=== PATIENT | male | born 1980 ===

== ENCOUNTER 2016-12-04 14:22 | Emergency (ER) | payer OTHER ==
[2016-12-04 14:32] VITALS: BMI 40.1
[2016-12-04 14:35] VITALS: BP 129/88; PULSE 90; TEMP 99.1
[2016-12-04] MEDS ORDERED: Naproxen 550 mg Tab PO STA (15:35)
--- NOTE | 2016-12-04 15:39 | ED PDOC ---
Arrival/HPI - General Chief Complaint: ENT Problem Time Seen by Provider: 12/04/16 15:35 Historian: Patient - History of Present Illness Narrative History of Present Illness (Text): 12/04/16 15:36 Patient complains of several day history of ringing sensation to the right ear. Denies any pain, discharge, decrease in hearing, fever, headache, URI symptoms, dizziness, nausea. Patient is other complaints otherwise. PMD Santiago Past Medical History - Provider Review Nursing Documentation Reviewed: Yes - Infectious Disease Hx of Infectious Diseases: None - Cardiac Hx Cardiac Disorders: Yes Hx Hypertension: Yes - Psychiatric Hx Psychophysiologic Disorder: No Hx Substance Use: No - Anesthesia Hx Anesthesia Reactions: No Hx Malignant Hyperthermia: No Family/Social History - Physician Review Nursing Documentation Reviewed: Yes Family/Social History: No Known Family HX Smoking Status: Never Smoked Hx Alcohol Use: No Hx Substance Use: No Allergies/Home Meds Allergies/Adverse Reactions: Allergies No Known Allergies Allergy (Verified 10/09/16 13:36) Home Medications: Home Meds Medication Instructions Recorded Confirmed Gemfibrozil [Lopid] 600 mg PO DAILY 10/09/16 10/09/16 Losartan Potassium [Cozaar] 50 mg PO DAILY 10/09/16 10/09/16 Review of Systems - Review of Systems Constitutional: Normal. absent: Fatigue, Weight Change, Fevers Eyes: Normal. absent: Vision Changes, Photophobia ENT: Normal, Tinnitus. absent: Hearing Changes, TMJ Pain, Voice Changes Respiratory: Normal. absent: SOB, Cough Skin: Normal. absent: Rash, Skin Lesions Physical Exam - Physical Exam Narrative Physical Exam (Text): 12/04/16 15:37 GENERAL APPEARANCE: Patient is awake, alert, oriented x 3, in no acute distress. SKIN: Warm, dry; (-) cyanosis, (-) rash. (-) Decubitus Ulcer EYES: (-) conjunctival pallor, (-) scleral icterus, (-) conjunctival hemorrhage. ENMT: Mucous membranes moist. Canals: (-) erythema, (-) edema, (-) excessive cerumen. TMs: (-) erythema. Airway patent: (-) stridor. Pharynx: (-) erythema, (-) exudate. NECK: (-) tenderness, (-) stiffness, (-) meningismus, (-) lymphadenopathy. CHEST AND RESPIRATORY: (-) accessory muscle use. Lungs: (-) rales, (-) rhonchi, (-) wheezes, (-) rub; breath sounds equal bilaterally. HEART AND CARDIOVASCULAR: (-) irregularity; (-) murmur, (-) gallop, (-) rub. NEURO AND PSYCH: Mental status as above; (-) focal findings. Vital Signs Temp Pulse Resp BP Pulse Ox 12/04/16 14:23 99.1 F 90 18 129/88 96 Medical Decision Making ED Course and Treatment: 12/04/16 15:38 36 yo M presents with R ear tinnitus. Patient given naprosyn po. Patient advised that he must follow-up with ENT referral provided for further evaluation of his current symptoms. Prescription provided.Patient states he fully agrees with and understands discharge instructions. States that he agrees with the plan and disposition. Verbalized and repeated discharge instructions and plan. I have given the patient opportunity to ask any additional questions. Follow up with ENT referral in 1-2 days without fail. Advised to take medication as prescribed. Return to the emergency room at any time for any new or worsening symptoms. - PA / CAMPGROUND MANAGER / Resident Statement MD/DO has reviewed & agrees with the documentation as recorded. Disposition/Present on Arrival - Present on Arrival Any Indicators Present on Arrival: No History of DVT/PE: No History of Uncontrolled Diabetes: No Urinary Catheter: No History of Decub. Ulcer: No History Surgical Site Infection Following: None - Disposition Have Diagnosis and Disposition been Completed?: Yes Diagnosis: Tinnitus of right ear Disposition: HOME/ ROUTINE Disposition Time: 15:39 Patient Plan: Discharge Condition: GOOD Discharge Instructions (ExitCare): Tinnitus (ED) Print Language: ARABIC Additional Instructions: Thank you for letting us take care of you today. You were treated for tinnitus right ear. The emergency medical care you received today was directed at your acute symptoms. If you were prescribed any medication, please fill it and take as directed. It may take several days for your symptoms to resolve. Return to the Emergency Department if your symptoms worsen, do not improve, or if you have any other problems. Please contact your doctor in 2 days for re-evaluation and follow up / or call one of the physicians/clinics you have been referred to that are listed on the Patient Visit Information form that is included in your discharge packet. Bring any paperwork you were given at discharge with you along with any medications you are taking to your follow up visit. Our treatment cannot replace ongoing medical care by a primary care provider (PCP) outside of the emergency department. Thank you for allowing the [facility] team to be part of your care today. Prescriptions: Naproxen 500 mg PO BID #30 tab Referrals: Thiago Henderson MD [Primary Care Provider] - Follow up with primary Sukhwinder Odonnell DO [Staff Provider] - Follow up with primary Forms: WORK NOTE
[2016-12-04 15:48] VITALS: RESP 16; O2SAT 98
== END 2016-12-04 15:48 | disposition home or self-care (01) ==
LOC: ED 14:22
DX: H93.11 Tinnitus, right ear (principal); I10 Essential (primary) hypertension

== ENCOUNTER 2017-06-19 08:21 | Emergency (ER) | payer OTHER ==
[2017-06-19 08:22] VITALS: BMI 40.1
[2017-06-19 08:40] VITALS: TEMP 98.8
--- NOTE | 2017-06-19 08:51 | ED PDOC ---
Arrival/HPI - General Chief Complaint: Cough, Cold, Congestion Time Seen by Provider: 06/19/17 08:26 Historian: Patient - History of Present Illness Narrative History of Present Illness (Text): 06/19/17 08:40 Akil Chiu is a 36 year old male, whose past medical history includes hypertension, who presents to the emergency department complaining of an itchy sore throat and mild headache since last night. Patient also reports having a cough and nose congestion. He notes taking Tylenol for his fever, which had relief on his symptoms. Patient denies any shortness of breath, chest pain, nausea, vomiting, diarrhea, or other complaints. PMD: Dr. Henderson Time/Duration: Other (last night) Symptom Onset: Sudden Symptom Course: Unchanged Associated Symptoms (Text): fever, headache, nose congestion, cough Past Medical History - Provider Review Nursing Documentation Reviewed: Yes - Infectious Disease Hx of Infectious Diseases: None - Cardiac Hx Cardiac Disorders: Yes Hx Hypertension: Yes - Psychiatric Hx Psychophysiologic Disorder: No Hx Substance Use: No - Anesthesia Hx Anesthesia Reactions: No Hx Malignant Hyperthermia: No Family/Social History - Physician Review Nursing Documentation Reviewed: Yes Family/Social History: Other (Non-contributing) Smoking Status: Never Smoked Hx Alcohol Use: No Hx Substance Use: No Allergies/Home Meds Allergies/Adverse Reactions: Allergies Penicillins Allergy (Verified 06/19/17 08:40) RASH Home Medications: Home Meds Medication Instructions Recorded Confirmed Gemfibrozil [Lopid] 600 mg PO DAILY 10/09/16 06/19/17 Losartan Potassium [Cozaar] 50 mg PO DAILY 10/09/16 06/19/17 Review of Systems - Review of Systems Constitutional: Fevers ENT: Sore Throat, Sinus Congestion Respiratory: Cough. absent: SOB Cardiovascular: absent: Chest Pain Gastrointestinal: absent: Abdominal Pain, Diarrhea, Vomiting Musculoskeletal: absent: Back Pain Neurological: Headache Physical Exam Vital Signs Reviewed: Yes Vital Signs Temp Pulse Resp BP Pulse Ox 06/19/17 10:10 81 18 129/85 95 06/19/17 08:37 98.8 F 88 16 140/90 98 Temperature: Afebrile Blood Pressure: Normal Pulse: Regular Respiratory Rate: Normal Appearance: Positive for: Well-Appearing, Non-Toxic, Comfortable Pain Distress: None Mental Status: Positive for: Alert and Oriented X 3 - Systems Exam Head: Present: Atraumatic, Normocephalic Mouth: Present: Moist Mucous Membranes Pharnyx: Present: Normal. No: ERYTHEMA Neck: Present: Normal Range of Motion Respiratory/Chest: Present: Clear to Auscultation, Good Air Exchange. No: Respiratory Distress, Accessory Muscle Use Cardiovascular: Present: Regular Rate and Rhythm, Normal S1, S2. No: Murmurs Abdomen: Present: Normal Bowel Sounds. No: Tenderness, Distention, Peritoneal Signs Neurological: Present: GCS=15, CN II-XII Intact, Speech Normal Skin: Present: Warm, Dry, Normal Color. No: Rashes Psychiatric: Present: Alert, Oriented x 3, Normal Insight, Normal Concentration Medical Decision Making - Lab Interpretations Lab Results: Lab Results 06/19/17 08:47: Grp A Beta Strep Ag Negative I have reviewed the lab results: Yes - Medication Orders Current Medication Orders: Discontinued Medications Ibuprofen (Motrin Tab) 800 mg PO STAT STA Stop: 06/19/17 08:48 Last Admin: 06/19/17 09:03 Dose: Lidocaine HCl (Lidocaine 2% Viscous) 15 ml PO STAT STA Stop: 06/19/17 08:48 Last Admin: 06/19/17 08:57 Dose: 15 ml - Scribe Statement The provider has reviewed the documentation as recorded by the Charles Fong Provider Scribe Attestation: All medical record entries made by the Scribe were at my direction and personally dictated by me. I have reviewed the chart and agree that the record accurately reflects my personal performance of the history, physical exam, medical decision making, and the department course for this patient. I have also personally directed, reviewed, and agree with the discharge instructions and disposition. Disposition/Present on Arrival - Present on Arrival Any Indicators Present on Arrival: No History of DVT/PE: No History of Uncontrolled Diabetes: No Urinary Catheter: No History of Decub. Ulcer: No History Surgical Site Infection Following: None - Disposition Have Diagnosis and Disposition been Completed?: Yes Diagnosis: URI (upper respiratory infection) Disposition: HOME/ ROUTINE Disposition Time: 10:10 Condition: STABLE Discharge Instructions (ExitCare): Upper Respiratory Infection (ED) Additional Instructions: Please follow up with your doctor. Take both tylenol and ibuprofen as directed for body aches and fever. Return to the ER for any worsening symptoms or for any other concerns. Referrals: Thiago Henderson MD [Primary Care Provider] - Follow up with primary Forms: [facility] (Cape Verdean), WORK NOTE
[2017-06-19 10:11] VITALS: BP 129/85; PULSE 81; RESP 18; O2SAT 95
== END 2017-06-19 10:10 | disposition home or self-care (01) ==
LOC: ED 08:21
DX: J06.9 Acute upper respiratory infection, unspecified (principal); I10 Essential (primary) hypertension

== ENCOUNTER 2017-09-26 06:26 | Emergency (ER) | payer OTHER ==
[2017-09-26 06:26] VITALS: BMI 40.1
[2017-09-26 07:06] VITALS: BP 128/86; PULSE 86; RESP 18; TEMP 98.7; O2SAT 95
--- NOTE | 2017-09-26 08:21 | ED PDOC ---
Arrival/HPI - General Chief Complaint: ENT Problem Time Seen by Provider: 09/26/17 07:54 Historian: Patient - History of Present Illness Time/Duration: Other (3 days) Symptom Onset: Gradual Symptom Course: Worsening Quality: Aching Severity Level: Moderate Associated Symptoms (Text): 09/26/17 08:18 Patient complains of a three-day history of a cough congestion sputum production URI symptoms and sore throat. No fever or chills. No dyspnea. No chest pain. Past Medical History - Infectious Disease Hx of Infectious Diseases: None - Cardiac Hx Cardiac Disorders: Yes Hx Hypertension: Yes - Pulmonary Hx Respiratory Disorders: No - Neurological Hx Neurological Disorder: No - HEENT Hx HEENT Disorder: No - Renal Hx Renal Disorder: No - Endocrine/Metabolic Hx Endocrine Disorders: No - Hematological/Oncological Hx Blood Disorders: No - Integumentary Hx Dermatological Disorder: No - Musculoskeletal/Rheumatological Hx Musculoskeletal Disorders: No - Gastrointestinal Hx Gastrointestinal Disorders: No - Genitourinary/Gynecological Hx Genitourinary Disorders: No - Psychiatric Hx Psychophysiologic Disorder: No Hx Substance Use: No - Anesthesia Hx Anesthesia Reactions: No Hx Malignant Hyperthermia: No Family/Social History - Physician Review Nursing Documentation Reviewed: Yes Family/Social History: Unknown Family HX Smoking Status: Never Smoked Hx Alcohol Use: No Hx Substance Use: No Allergies/Home Meds Allergies/Adverse Reactions: Allergies Penicillins Allergy (Verified 09/26/17 06:55) RASH Home Medications: Home Meds Medication Instructions Recorded Confirmed Losartan Potassium [Cozaar] 50 mg PO DAILY 10/09/16 09/26/17 Review of Systems - Physician Review All systems were reviewed & negative as marked: Yes - Review of Systems Constitutional: Fatigue. absent: Fevers Respiratory: Cough, Sputum. absent: SOB, Wheezing Cardiovascular: absent: Chest Pain, Syncope Gastrointestinal: absent: Abdominal Pain, Nausea, Vomiting Physical Exam Vital Signs Temp Pulse Resp BP Pulse Ox 09/26/17 07:05 98.7 F 86 18 128/86 95 Temperature: Afebrile Blood Pressure: Normal Pulse: Regular Respiratory Rate: Normal Appearance: Positive for: Well-Appearing, Non-Toxic, Uncomfortable Pain Distress: None Mental Status: Positive for: Alert and Oriented X 3 - Systems Exam Head: Present: Atraumatic, Normocephalic Pupils: Present: PERRL Extroacular Muscles: Present: EOMI Conjunctiva: Present: Normal Ears: Present: NORMAL TM, Normal Canal. No: Erythema, TM Bulging Mouth: Present: Moist Mucous Membranes Pharnyx: Present: ERYTHEMA. No: EXUDATE, TONSILS ENLARGED, Peritonsilar Swelling, Uvular Deviation, Muffled/Hoarse Voice, Strider, Soft Palate/Uvular Edema Nose (Internal): Present: Other (congested) Neck: Present: Normal Range of Motion Respiratory/Chest: Present: Clear to Auscultation, Good Air Exchange. No: Respiratory Distress, Accessory Muscle Use Cardiovascular: Present: Regular Rate and Rhythm, Normal S1, S2. No: Murmurs Skin: Present: Warm, Dry, Normal Color. No: Rashes Disposition/Present on Arrival - Present on Arrival Any Indicators Present on Arrival: No History of DVT/PE: No History of Uncontrolled Diabetes: No Urinary Catheter: No History of Decub. Ulcer: No History Surgical Site Infection Following: None - Disposition Have Diagnosis and Disposition been Completed?: Yes Diagnosis: Pharyngitis, Bronchitis, Upper respiratory infection Disposition: HOME/ ROUTINE Disposition Time: 08:21 Patient Plan: Discharge Condition: GOOD Discharge Instructions (ExitCare): Acute Bronchitis (ED)
== END 2017-09-26 08:37 | disposition home or self-care (01) ==
LOC: ED 06:26
DX: J40 Bronchitis, not specified as acute or chronic (principal); J02.9 Acute pharyngitis, unspecified; J06.9 Acute upper respiratory infection, unspecified; I10 Essential (primary) hypertension

== ENCOUNTER 2018-01-01 06:31 | Emergency (ER) | payer OTHER ==
[2018-01-01 06:31] VITALS: BMI 40.1
[2018-01-01 06:48] VITALS: BP 143/83; PULSE 79; RESP 18; TEMP 98.6; O2SAT 98
--- NOTE | 2018-01-01 07:24 | ED PDOC ---
Arrival/HPI - General Chief Complaint: ENT Problem Time Seen by Provider: 01/01/18 07:10 Historian: Patient - History of Present Illness Narrative History of Present Illness (Text): 01/01/18 07:15 37 year old male, whose PMH includes hypertension, who presents to the emergency department complaining of tinnitus on right ear since last night. Patient reports he previously had this problem, and had an MRI of his ear done. Patient states he couldn't make it to work due to lack of sleep because of the pain. No other complaints were made. Time/Duration: 4-6 hours Symptom Onset: Sudden Symptom Course: Unchanged Context: Home Past Medical History - Provider Review Nursing Documentation Reviewed: Yes - Infectious Disease Hx of Infectious Diseases: None - Cardiac Hx Cardiac Disorders: Yes Hx Hypertension: Yes - Pulmonary Hx Respiratory Disorders: No - Neurological Hx Neurological Disorder: No - HEENT Hx HEENT Disorder: No - Renal Hx Renal Disorder: No - Endocrine/Metabolic Hx Endocrine Disorders: No - Hematological/Oncological Hx Blood Disorders: No - Integumentary Hx Dermatological Disorder: No - Musculoskeletal/Rheumatological Hx Musculoskeletal Disorders: No - Gastrointestinal Hx Gastrointestinal Disorders: No - Genitourinary/Gynecological Hx Genitourinary Disorders: No - Psychiatric Hx Psychophysiologic Disorder: No Hx Substance Use: No - Anesthesia Hx Anesthesia Reactions: No Hx Malignant Hyperthermia: No Family/Social History - Physician Review Nursing Documentation Reviewed: Yes Family/Social History: Unknown Family HX Smoking Status: Never Smoked Hx Alcohol Use: No Hx Substance Use: No Allergies/Home Meds Allergies/Adverse Reactions: Allergies Penicillins Allergy (Verified 09/26/17 06:55) RASH Home Medications: Home Meds Medication Instructions Recorded Confirmed Losartan Potassium [Cozaar] 50 mg PO DAILY 10/09/16 01/01/18 Review of Systems - Physician Review All systems were reviewed & negative as marked: Yes - Review of Systems Constitutional: absent: Fevers ENT: Tinnitus (right ear) Respiratory: absent: SOB Cardiovascular: absent: Chest Pain Physical Exam Vital Signs Reviewed: Yes Vital Signs Temp Pulse Resp BP Pulse Ox 01/01/18 06:43 98.6 F 79 18 143/83 98 Temperature: Afebrile Blood Pressure: Normal Pulse: Regular Respiratory Rate: Normal Appearance: Positive for: Well-Appearing, Non-Toxic, Comfortable Pain Distress: None Mental Status: Positive for: Alert and Oriented X 3 - Systems Exam Head: Present: Atraumatic, Normocephalic Pupils: Present: PERRL Extroacular Muscles: Present: EOMI Conjunctiva: Present: Normal Ears: Present: Normal, NORMAL TM, Normal Canal. No: Erythema, TM Bulging Mouth: Present: Moist Mucous Membranes Neurological: Present: GCS=15, CN II-XII Intact, Speech Normal Skin: Present: Warm, Dry, Normal Color. No: Rashes Psychiatric: Present: Alert, Oriented x 3, Normal Insight, Normal Concentration Medical Decision Making ED Course and Treatment: 01/01/18 Impression: 37 year old male, with unremarkable physical exam who presents to the emergency department complaining of tinnitus on right ear. Plan: -- Reassess and disposition Progress Notes: 01/01/18 13:30 h/o of chronic tinnitus, already eval by ent. requesting work note. - Scribe Statement The provider has reviewed the documentation as recorded by the Scribe Erika Fong Provider Scribe Attestation: All medical record entries made by the Scribe were at my direction and personally dictated by me. I have reviewed the chart and agree that the record accurately reflects my personal performance of the history, physical exam, medical decision making, and the department course for this patient. I have also personally directed, reviewed, and agree with the discharge instructions and disposition. Disposition/Present on Arrival - Present on Arrival Any Indicators Present on Arrival: No History of DVT/PE: No History of Uncontrolled Diabetes: No Urinary Catheter: No History of Decub. Ulcer: No History Surgical Site Infection Following: None - Disposition Have Diagnosis and Disposition been Completed?: Yes Diagnosis: Tinnitus, Encounter to obtain excuse from work Disposition: HOME/ ROUTINE Disposition Time: 07:00 Condition: STABLE Discharge Instructions (ExitCare): Tinnitus (Ringing in the Ears) Additional Instructions: follow up with your doctor/specialist. return to er with worsening symptoms or concerns. Referrals: Sukhwinder Odonnell DO [Staff Provider] - Follow up with primary Alexa García [Primary Care Provider] - Follow up with primary Forms: [facility] (Guamanian), WORK NOTE
== END 2018-01-01 07:50 | disposition home or self-care (01) ==
LOC: ED 06:31
DX: Z02.89 Encounter for other administrative examinations (principal); H93.11 Tinnitus, right ear; I10 Essential (primary) hypertension

== ENCOUNTER 2018-06-06 11:14 | Emergency (ER) | payer OTHER ==
[2018-06-06 11:34] VITALS: BMI 39.6
[2018-06-06 11:36] VITALS: RESP 18; TEMP 98.3; O2SAT 96
--- NOTE | 2018-06-06 12:19 | ED PDOC ---
Arrival/HPI - General Chief Complaint: ENT Problem Time Seen by Provider: 06/06/18 12:13 Historian: Patient - History of Present Illness Narrative History of Present Illness (Text): 06/06/18 13:08 37-year-old male with a history of tinnitus presents today with ringing in his ears that started today while at work. Patient states he has a history of similar symptoms in the same ear about 4 months ago. Patient states he followed with an ENT specialist and was given medications for the ringing in the ears. Patient states he's also had CAT scans of his head as well as multiple tests performed on his ear. Patient states ENT specialist told him he had 15% hearing loss in that right ear. 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 Patient states he does not have any of those medications remaining in the symptoms started again today while at work. Patient denies headaches dizziness or weakness denies fevers or chills. Denies neck pain. Patient denies pain within the ears. States he just has a ringing sensation in the ears that has been constant since this morning. Denies any recent trauma or injury. No other complaints Past Medical History - Provider Review Nursing Documentation Reviewed: Yes - Travel History Have you recently traveled outside [place] w/in the past 3 mons?: No - Infectious Disease Hx of Infectious Diseases: None - Cardiac Hx Cardiac Disorders: Yes Hx Hypertension: Yes - Pulmonary Hx Respiratory Disorders: No - Neurological Hx Neurological Disorder: No - HEENT Hx HEENT Disorder: Yes Other/Comment: Tinnitus - Renal Hx Renal Disorder: No - Endocrine/Metabolic Hx Endocrine Disorders: No - Hematological/Oncological Hx Blood Disorders: No - Integumentary Hx Dermatological Disorder: No - Musculoskeletal/Rheumatological Hx Musculoskeletal Disorders: No - Gastrointestinal Hx Gastrointestinal Disorders: No - Genitourinary/Gynecological Hx Genitourinary Disorders: No - Psychiatric Hx Psychophysiologic Disorder: No Hx Substance Use: No - Anesthesia Hx Anesthesia: No Hx Anesthesia Reactions: No Hx Malignant Hyperthermia: No Family/Social History - Physician Review Nursing Documentation Reviewed: Yes Family/Social History: Unknown Family HX Smoking Status: Never Smoked Hx Alcohol Use: No Hx Substance Use: No Allergies/Home Meds Allergies/Adverse Reactions: Allergies Penicillins Allergy (Verified 09/26/17 06:55) RASH Home Medications: Home Meds Medication Instructions Recorded Confirmed Losartan Potassium [Cozaar] 50 mg PO DAILY 10/09/16 06/06/18 Review of Systems - Review of Systems Constitutional: absent: Fatigue, Fevers ENT: Tinnitus. absent: TMJ Pain, Voice Changes, Sore Throat, Rhinorrhea, Epistaxis, Sinus Congestion Respiratory: absent: SOB, Cough Cardiovascular: absent: Chest Pain, Palpitations Gastrointestinal: absent: Abdominal Pain, Nausea, Vomiting Genitourinary Male: absent: Dysuria Musculoskeletal: absent: Arthralgias Skin: absent: Rash, Pruritis Neurological: absent: Headache, Dizziness Psychiatric: absent: Anxiety, Depression Physical Exam Vital Signs Reviewed: Yes Vital Signs Temp Pulse Resp BP Pulse Ox 06/06/18 11:35 98.3 F 76 18 130/90 96 Temperature: Afebrile Blood Pressure: Normal Pulse: Regular Respiratory Rate: Normal Appearance: Positive for: Well-Appearing, Non-Toxic, Comfortable Pain Distress: None Mental Status: Positive for: Alert and Oriented X 3 - Systems Exam Head: Present: Atraumatic Pupils: Present: PERRL Extroacular Muscles: Present: EOMI Ears: Present: Normal, NORMAL TM, Normal Canal, Other (no mastoid tenderness). No: Erythema, TM Perf Mouth: Present: Moist Mucous Membranes Pharnyx: Present: Normal Nose (External): Present: Atraumatic Nose (Internal): Present: Normal Inspection Neck: Present: Normal Range of Motion, Trachea Midline. No: Lymphadenopathy Respiratory/Chest: Present: Clear to Auscultation Cardiovascular: Present: Regular Rate and Rhythm Neurological: Present: GCS=15 Skin: Present: Warm, Dry, Normal Color. No: Rashes Psychiatric: Present: Alert, Oriented x 3 Medical Decision Making ED Course and Treatment: 06/06/18 13:15 37 yr old male with hx of tinnitus, with full Workup by ENT 4 months ago. now with tinnitus that started this morning. no headaches, dizziness, weakness. no blurred vision. Advised follow-up with PMD and ENT specialist within the next 2 days. Advised immediate return if symptoms worsen persist or if new concerning symptoms develop Patient verbalizes understanding of discharge instructions and need for immediate followup. all aspects of this case were discussed the attending of record. impression; tinnitus f/u with pmd and ent specialist return if symptoms worsen, persist or if new symptoms develop. Disposition/Present on Arrival - Present on Arrival Any Indicators Present on Arrival: No History of DVT/PE: No History of Uncontrolled Diabetes: No Urinary Catheter: No History of Decub. Ulcer: No History Surgical Site Infection Following: None - Disposition Have Diagnosis and Disposition been Completed?: Yes Diagnosis: Tinnitus Disposition: HOME/ ROUTINE Disposition Time: 12:17 Patient Plan: Discharge Patient Problems: Current Active Problems Problem Status Onset Tinnitus Acute Condition: GOOD Discharge Instructions (ExitCare): Tinnitus (Ringing in the Ears) Additional Instructions: Follow up with the ENT specialist within the next 2 days Return if symptoms worsen,persist or if new symptoms develop Referrals: Alexa García [Primary Care Provider] - Follow up with primary Jesús Donahue DO [Doctor Osteopathy] - Follow up with primary Forms: [facility] (Ind[place]ian), WORK NOTE
[2018-06-06 12:50] VITALS: BP 128/85; PULSE 74
== END 2018-06-06 13:18 | disposition home or self-care (01) ==
LOC: ED 11:14
DX: H93.11 Tinnitus, right ear (principal)

== ENCOUNTER 2018-11-12 05:57 | Emergency (ER) | payer SELFPAY ==
[2018-11-12 06:02] VITALS: BMI 43.9
--- NOTE | 2018-11-12 06:04 | ED PDOC ---
Arrival/HPI - General Time Seen by Provider: 11/12/18 06:00 Historian: Patient - History of Present Illness Narrative History of Present Illness (Text): 11/12/18 06:03 Akil Chiu is a 38 year old male, whose past medical history includes hypertension, who presents to the Emergency department complaining of a clogged sensation to his left ear for 1 day. Patient denies any fever, chills, sore throat, cough, nausea, vomiting, headache dizziness, neck pain, or any other complaints. Symptom Onset: Gradual Symptom Course: Unchanged Activities at Onset: Light Context: Home Past Medical History - Provider Review Nursing Documentation Reviewed: Yes - Infectious Disease Hx of Infectious Diseases: None - Cardiac Hx Cardiac Disorders: Yes Hx Hypertension: Yes - Pulmonary Hx Respiratory Disorders: No - Neurological Hx Neurological Disorder: No - HEENT Hx HEENT Disorder: Yes Other/Comment: Tinnitus - Renal Hx Renal Disorder: No - Endocrine/Metabolic Hx Endocrine Disorders: No - Hematological/Oncological Hx Blood Disorders: No - Integumentary Hx Dermatological Disorder: No - Musculoskeletal/Rheumatological Hx Musculoskeletal Disorders: No - Gastrointestinal Hx Gastrointestinal Disorders: No - Genitourinary/Gynecological Hx Genitourinary Disorders: No - Psychiatric Hx Psychophysiologic Disorder: No Hx Substance Use: No - Anesthesia Hx Anesthesia: No Hx Anesthesia Reactions: No Hx Malignant Hyperthermia: No Family/Social History - Physician Review Nursing Documentation Reviewed: Yes Family/Social History: Unknown Family HX Smoking Status: Never Smoked Hx Alcohol Use: No Hx Substance Use: No Allergies/Home Meds Allergies/Adverse Reactions: Allergies Penicillins Allergy (Verified 11/12/18 06:06) RASH Home Medications: Home Meds Medication Instructions Recorded Confirmed Losartan Potassium [Cozaar] 50 mg PO DAILY 10/09/16 06/06/18 Review of Systems - Physician Review All systems were reviewed & negative as marked: Yes - Review of Systems Constitutional: Normal. absent: Fevers Eyes: Normal ENT: Other (+left ear clogged sensation) Respiratory: Normal. absent: SOB, Cough Cardiovascular: Normal. absent: Chest Pain Gastrointestinal: Normal. absent: Abdominal Pain, Diarrhea, Vomiting, Anorexia Genitourinary Male: Normal. absent: Dysuria, Frequency, Hematuria, Urinary Output Changes Musculoskeletal: Normal. absent: Back Pain, Neck Pain Skin: Normal. absent: Rash Neurological: Normal. absent: Headache, Dizziness Endocrine: Normal Hemo/Lymphatic: Normal Psychiatric: Normal Physical Exam Vital Signs Reviewed: Yes Temperature: Afebrile Blood Pressure: Normal Pulse: Regular Respiratory Rate: Normal Appearance: Positive for: Well-Appearing, Non-Toxic, Comfortable Pain Distress: None Mental Status: Positive for: Alert and Oriented X 3 - Systems Exam Head: Present: Atraumatic, Normocephalic Pupils: Present: PERRL Extroacular Muscles: Present: EOMI Conjunctiva: Present: Normal Ears: Present: Other (Cerumen impaction in left ear) Mouth: Present: Moist Mucous Membranes Pharnyx: Present: Normal. No: ERYTHEMA, EXUDATE, TONSILS ENLARGED, Peritonsilar Swelling, Uvular Deviation, Muffled/Hoarse Voice, Strider, Soft Palate/Uvular Edema Nose (External): Present: Atraumatic Nose (Internal): Present: Normal Inspection Neck: Present: Normal Range of Motion. No: Meningeal Signs, MIDLINE TENDERNESS, Paraspinal Tenderness Respiratory/Chest: Present: Clear to Auscultation, Good Air Exchange. No: Respiratory Distress, Accessory Muscle Use Cardiovascular: Present: Regular Rate and Rhythm, Normal S1, S2. No: Murmurs Abdomen: No: Tenderness, Distention, Peritoneal Signs Upper Extremity: Present: Normal Inspection. No: Cyanosis, Edema Lower Extremity: Present: Normal Inspection. No: Edema Neurological: Present: GCS=15, CN II-XII Intact, Speech Normal Skin: Present: Warm, Dry, Normal Color. No: Rashes Psychiatric: Present: Alert, Oriented x 3, Normal Insight, Normal Concentration Medical Decision Making ED Course and Treatment: 11/12/18 06:03 Impression: 38 year old male complaining of a clogged sensation in his left ear for 1 day. Plan: -- Reassess and disposition Progress Notes: - Scribe Statement The provider has reviewed the documentation as recorded by the Charles Jeff Provider Scribe Attestation: All medical record entries made by the Scribe were at my direction and personally dictated by me. I have reviewed the chart and agree that the record accurately reflects my personal performance of the history, physical exam, medical decision making, and the department course for this patient. I have also personally directed, reviewed, and agree with the discharge instructions and disposition. Disposition/Present on Arrival - Present on Arrival Any Indicators Present on Arrival: No History of DVT/PE: No History of Uncontrolled Diabetes: No Urinary Catheter: No History Surgical Site Infection Following: None - Disposition Have Diagnosis and Disposition been Completed?: Yes Diagnosis: Excessive cerumen in left ear canal Disposition: HOME/ ROUTINE Disposition Time: 06:17 Patient Plan: Discharge Condition: STABLE Discharge Instructions (ExitCare): Ear Wax Impaction (DC) Additional Instructions: Use medication as prescribed/follow up with ear/nose/throat doctor this week Prescriptions: Carbamide Peroxide [Debrox Ear Drops] 4 drop TID #1 bottle Referrals: Jesús Donahue DO [[facility]] - Follow up with primary Forms: WORK NOTE
[2018-11-12 06:06] VITALS: BP 131/80; PULSE 89; RESP 16; TEMP 97.8; O2SAT 96
== END 2018-11-12 06:30 | disposition home or self-care (01) ==
LOC: ED 05:57
DX: H61.22 Impacted cerumen, left ear (principal); I10 Essential (primary) hypertension